=== PATIENT | female | born 1960 | race Hispanic/Latino ===

== ENCOUNTER 2020-02-23 09:24 | Outpatient (CLI) | payer OTHER ==
--- NOTE | 2020-02-23 11:35 | Mammography Report ---
DIGITAL SCREENING MAMMOGRAM WITH TOMOSYNTHESIS WITH CAD, 02/23/2020 CLINICAL INFORMATION / INDICATION: Routine Screening Mammography. TECHNIQUE: Digital bilateral 2D and 3D mammography with tomosynthesis was obtained in the craniocaud al and mediolateral oblique projections. Computer-Aided Detection (CAD) analysis was used for interp retation of this study. COMPARISON: 08/01/2018, 06/27/2017 FINDINGS: Breast Density: The breasts are heterogeneously dense, which may obscure small masses. No dominant mass, suspicious calcifications, or architectural distortion in either breast. IMPRESSION: No mammographic evidence of malignancy. Follow up recommendation: Routine yearly BI-RADS Category 1: Negative. A "normal" or negative report should not discourage follow up or biopsy of a clinically significant f inding. A written summary of these findings will be mailed to the patient. The patient will be entered into a mammography reporting system which will generate a reminder letter for the patient's next appointmen t at the appropriate interval. The [employer] recommends yearly mammograms starting at age 40 and continuing as l rosetta as a woman is in good health. Breast MRI is recommended for women with an approximate 20-25% or greater lifetime risk of breast cancer, including women with a strong family history of breast or ova anjana cancer or who have been treated for Hodgkin's disease. Signer Name: Abhijeet Reynaga MD Signed: 02/23/2020 11:30 AM Workstation Name: [email or web address]
== END 2020-02-23 09:25 | disposition home or self-care (01) ==
LOC: SPVWC 09:24
PROVIDERS: ATTEND Surgery
DX: Z12.31 Encounter for screening mammogram for malignant neoplasm of breast (principal)
CPT/HCPCS: 77063; 77067

== ENCOUNTER 2021-02-27 10:02 | Outpatient (CLI) | payer OTHER ==
--- NOTE | 2021-02-27 15:21 | Mammography Report ---
DIGITAL SCREENING MAMMOGRAM WITH TOMOSYNTHESIS WITH CAD, 02/27/2021 CLINICAL INFORMATION / INDICATION: Routine Screening Mammography. TECHNIQUE: Digital bilateral 2D and 3D mammography with tomosynthesis was obtained in the craniocaud al and mediolateral oblique projections. Computer-Aided Detection (CAD) analysis was used for interp retation of this study. COMPARISON: 02/23/2020, 08/01/2018 FINDINGS: Breast Density: The breasts are heterogeneously dense, which may obscure small masses. No dominant mass, suspicious calcifications, or architectural distortion in the right breast. There is a focal asymmetry within the posterior third of the left inner, lower breast. IMPRESSION: Focal asymmetry within the posterior third of the left inner, lower breast. Spot magnific ation views and ultrasound are recommended for further evaluation. Follow up recommendation: Special View: Spot BI-RADS Category 0: Incomplete. Needs additional imaging evaluation and/or prior mammograms for domonique rison. A "normal" or negative report should not discourage follow up or biopsy of a clinically significant f inding. A written summary of these findings will be mailed to the patient. The patient will be entered into a mammography reporting system which will generate a reminder letter for the patient's next appointmen t at the appropriate interval. The [employer] recommends yearly mammograms starting at age 40 and continuing as l rosetta as a woman is in good health. Breast MRI is recommended for women with an approximate 20-25% or greater lifetime risk of breast cancer, including women with a strong family history of breast or ova anjana cancer or who have been treated for Hodgkin's disease. Signer Name: Adrian Taveras DO Signed: 02/27/2021 3:14 PM Workstation Name: [id number]
== END 2021-02-27 10:03 | disposition home or self-care (01) ==
LOC: SPVWC 10:02
PROVIDERS: ATTEND Surgery
DX: Z12.31 Encounter for screening mammogram for malignant neoplasm of breast (principal); N64.89 Other specified disorders of breast
CPT/HCPCS: 77063; 77067

== ENCOUNTER 2021-03-10 08:07 | Outpatient (CLI) | payer OTHER ==
--- NOTE | 2021-03-10 18:01 | Mammography Report ---
LEFT DIGITAL DIAGNOSTIC MAMMOGRAM WITH CAD , 03/10/2021 LEFT LIMITED BREAST ULTRASOUND CLINICAL INFORMATION / INDICATION: ABNORMAL MAMMO TECHNIQUE: Digital left mammographic imaging was performed. Spot compression and magnification views were obtained. Limited ultrasound was performed. This examination was interpreted with the benefit of Computer-Aided Detection (CAD) analysis. COMPARISON: Recent mammogram 02/27/2021 FINDINGS: Breast Density: The breasts are heterogeneously dense, which may obscure small masses. MAMMOGRAPHIC FINDINGS: Further evaluation of the left breast demonstrates a partially well-circumscri bed nodule in the lower inner quadrant of the left breast at approximately 7-8:00. The nodule measure s 5 mm. No calcifications are seen associated with the nodule. ULTRASOUND FINDINGS: Targeted ultrasound evaluation was performed of the area of interest. Sonograp hic evaluation of the lower inner quadrant of the left breast demonstrates a 6 mm solid oval nodule i n the 7:00 location, 9 cm from nipple. This does appear to correlate with the nodule noted mammograph ically. IMPRESSION: 6 mm solid nodule is seen in the left breast at 7:00. Although this nodule may be a fibro adenoma, it does represent interval change from prior mammograms and therefore warrants further evalu ation with ultrasound-guided biopsy. Follow up recommendation: Biopsy BI-RADS Category 4: Suspicious for Malignancy. A "normal" or negative report should not discourage follow up or biopsy of a clinically significant f inding. A written summary of these findings will be mailed to the patient. The patient will be entered into a mammography reporting system which will generate a reminder letter for the patient's next appointmen t at the appropriate interval. According to the [employer], yearly mammograms are recommended starting at age 40 and continuing as long as a woman is in good health. Breast MRI is recommended for women with an ishaan roximately 20-25% or greater lifetime risk of breast cancer, including women with a strong family his tory of breast or ovarian cancer and women who have been treated for Hodgkin's disease. Signer Name: Brianna Kong MD Signed: 03/10/2021 5:57 PM Workstation Name: [id number]
== END 2021-03-10 08:08 | disposition home or self-care (01) ==
LOC: MAMMO 08:07
PROVIDERS: ATTEND Surgery
DX: N63.24 Unspecified lump in the left breast, lower inner quadrant (principal); M92.8 Other specified juvenile osteochondrosis